=== PATIENT | female | born 2000 | race Caucasian/White ===

== ENCOUNTER 2022-01-23 14:22 | Outpatient (CLI) | payer BC, OTHER, SELFPAY ==
--- NOTE | 2022-01-23 14:30 | CRLHL7_ITS ---
For Patients: As a result of the Century Cures Act, medical imaging exams and procedure reports are released immediately into your electronic medical record. You may view this report before your referring provider. If you have questions, please contact your health care provider. INDICATION: Severe low back pain. TECHNIQUE: Multiplanar multisequence noncontrast MR images acquired through the lumbar spine. COMPARISON: None. FINDINGS: The lumbar lordosis is preserved. Vertebral heights maintained. No acute fracture or spondylolisthesis. No concerning bone marrow signal abnormalities or marrow edema. Normal conus terminates at L1. T12-L1 through L3-4: No spinal canal or neural foraminal narrowing. L4-5: [id number] disc degeneration. Shallow broad-based central disc protrusion measuring 3 mm in short axis with small dorsal annular fissure. Minimal facet arthropathy. No spinal canal or neural foraminal narrowing. L5-S1: Ventral epidural fat prominence. Minimal facet arthropathy. Minimal thecal sac narrowing. No neural foraminal narrowing. IMPRESSION: 1. Mild lumbar spondylosis without spinal canal or neural foraminal stenosis. 2. At L4-5, shallow broad-based central disc protrusion with small dorsal annular fissure. 3. Minimal facet arthropathy in the lower lumbar spine. Dictated by Homer Ambrose MD @ 01/23/2022 5:53:44 PM (Electronically Signed)
== END 2022-01-23 14:23 | disposition home or self-care (01) ==
LOC: MRI 14:28
PROVIDERS: PCP Surgery
DX: M54.50 Low back pain, unspecified (principal); M47.816 Spondylosis without myelopathy or radiculopathy, lumbar region; M51.26 Other intervertebral disc displacement, lumbar region; M62.838 Other muscle spasm
CPT/HCPCS: 72148